=== PATIENT | female | born 1965 | race Caucasian/White ===

== ENCOUNTER 2021-01-17 17:17 | Emergency (ER) | payer SELFPAY ==
[~2021-01-17] VITALS: Ht 170.2 cm; Wt 81.7 kg
[2021-01-17] MEDS ORDERED: Norco 5-325 Ta1 EACH PO (21:04)
[2021-01-17] MEDS ORDERED: Crutch1 EACH MISC (21:04)
== END 2021-01-17 21:41 | disposition home or self-care (01) ==
LOC: ER 17:17
DX: S82.852A Displaced trimalleolar fracture of left lower leg, initial encounter for closed fracture (principal); F17.210 Nicotine dependence, cigarettes, uncomplicated; W18.40XA Slipping, tripping and stumbling without falling, unspecified, initial encounter
CPT/HCPCS: 27818; 73560-LT; 73610; 99283-25; A9270; J1170; J2704; J7030